=== PATIENT | female | born 1950 | race Caucasian/White ===

== ENCOUNTER 2024-03-22 17:16 | Emergency (ER) | payer OTHER, SELFPAY ==
[2024-03-22 17:21] VITALS: BMI 25.4
[2024-03-22 17:28] VITALS: BP 128/74
[2024-03-22 17:35] LABS: % Basophils 0.4 % (0-2); % Immature Granulocytes 0.3 % (0-0.5); % Lymphocytes 40.6 % (20.5-51.1); % Neutrophils 52.7 % (42.2-75.2); Absolute Basophils 0.1 10^3/uL (0-0.2); Absolute Lymphocytes 4.6 10^3/uL (1.2-3.4); Absolute Monocytes 0.7 10^3/uL (0.1-0.6); Absolute Neutrophils 5.9 10^3/uL (1.4-6.5); Hematocrit 37.8 % (37.0-47.0); Mean Corp Hgb Conc. 34.4 g/dL (33.0-37.0); Mean Corpuscular Hgb 29.8 pg (27.0-31.0); Mean Corpuscular Volume 86.7 fL (81.0-99.0); Mean Platelet Volume 9.9 fL (7.4-10.4); Nucleated Red Blood Cells % 0 %; Platelet Count 278 10^3/uL (130-400); Red Blood Cell Count 4.36 10^6/uL (4.20-5.40); Red Cell Dist. Width 13.2 % (11.5-14.5); White Blood Cell Count 11.2 10^3/uL (4.8-10.8)
[2024-03-22 18:00] VITALS: BP 109/67
[2024-03-22 18:17] LABS: ALT (SGPT) 15 U/L (0-35); AST (SGOT) 25 U/L (14-36); Albumin 4.4 g/dl (3.5-5.0); Alkaline Phosphatase 47 U/L (38-126); Blood Urea Nitrogen 11 mg/dl (7-17); Calcium 10.2 mg/dl (8.4-10.2); Carbon Dioxide 25 mmol/L (22-30); Chloride 100 mmol/L (98-107); Estimated Creatinine Clearance 38 ml/min; Glucose 170 mg/dl (70-99); Potassium 3.8 mmol/L (3.5-5.1); Sodium 138 mmol/L (135-145); Total Protein 6.8 g/dl (6.3-8.2); eGFR 53.39
[2024-03-22 19:00] VITALS: BP 118/73
[2024-03-22 19:21] LABS: Troponin I < 0.012 ng/ml
[2024-03-22] MEDS: REGLAN 10 MG IV (19:37)
[2024-03-22] MEDS: PEPCID 20 MG IV (19:39)
--- NOTE | 2024-03-22 22:20 | EDRN ---
Patient was able to ambulate around without difficulty, states she is ready to go home, informed Ed,[place]
[2024-03-22 22:23] VITALS: BP 108/83
--- NOTE | 2024-03-22 23:00 | ED.GENMED ---
History of Present Illness
General
Chief Complaint: Fainting/Passed Out
Source: patient
Exam Limitations: none
Time Seen by Provider: 03/22/24 18:06
Nursing documentation reviewed up to this point in time: agreed with
History of Present Illness
History of Present Illness:
73-year-old female with past medical history of partial colon removed presenting to the emergency department today after syncopal episode while she was out with her friend. An episode where she felt lightheaded but walk and passed out to the ground
denies any significant trauma. No pain at this point. Preceding chest pain palpitations shortness of breath. She claims that she has had some ongoing nausea over the past few days and decreased
Review of Systems
Review of Systems
Allergies reviewed?: Yes
All Other Systems: ROS reviewed and negative except as documented in HPI and ROS
Phy Exam
Physical Exam
Physical Exam:
GENERAL: Alert , in no apparent distress
EYE: pupils equal and reactive
NECK: Supple, no significant adenopathy.
ENT: o/p clr, mmm.
CARDIAC: Regular rate and rhythm .
LUNGS: Clear breath sounds bilaterally, no acute respiratory distress, no wheezes/rales/rhonchi
ABDOMEN: Soft, without focal tenderness, no r/g, no cvat
NEUROLOGICAL: Alert and oriented, no focal neuro deficits
SKIN: Warm and dry, skin intact.
MUSCULOSKELETAL: No edema, well perfused.
PSYCH: Normal and appropriate interaction.
Course
Orders/Labs/Results
Orders:
Orders
03/22/24 17:17
EKG [Electrocardiogram (*1)] Urgent
Reason for Study: Syncope
03/22/24 17:18
EKG- Treatment ONCE
03/22/24 17:27
CBC/With Diff [Complete Blood Count/With Diff] Urgent
CMP [Comprehensive Metabolic Panel] Urgent
03/22/24 18:38
Chest [CR Chest - 2 Views ] Urgent
Comment:
Reason For Exam: chest pain
03/22/24 18:39
Troponin I Urgent
03/22/24 19:34
Famotidine [Pepcid] 20 mg .ROUTE .STK-MED ONE
Metoclopramide [Reglan] 10 mg .ROUTE .STK-MED ONE
03/22/24 19:37
Famotidine [Pepcid] 20 mg IV NOW STA
Metoclopramide [Reglan] 10 mg IV NOW STA
Abnormal Lab Results
03/22/24
17:27
WBC 11.2 H 10^3/uL
(4.8-10.8)
Absolute Lymphs (auto) 4.6 H 10^3/uL
(1.2-3.4)
Absolute Monos (auto) 0.7 H 10^3/uL
(0.1-0.6)
Creatinine 1.1 H mg/dL
(0.6-1.0)
Glucose 170 H mg/dl
(70-99)
03/22/24 17:27
03/22/24 17:27
Vital Signs
Initial and Last Documented VS:
Initial Vital Signs
Temp
98.7 F
03/22/24 17:21
Last Documented Vital Signs
Temp Pulse Resp BP Pulse Ox
98.7 F 82 16 108/83 97
03/22/24 17:21 03/22/24 22:23 03/22/24 22:23 03/22/24 22:23 03/22/24 22:23
MDM/Problems Addressed
MDM/Problems Addressed:
73-year-old female presenting to the emergency department today after syncopal episode that occurred while she was out earlier today with her friend. Did not sustain any trauma. Upon arrival vital signs are normal patient no distress she claims to
have some nausea but denies any chest pain shortness of breath or palpitations. Slight white count of 11.2 otherwise labs unremarkable no evidence of coronary syndrome with negative troponin normal EKG normal chest x-ray. Patient asymptomatic for
multiple hours while in the ER advised for close outpatient follow-up and otherwise stable for outpatient management return precautions given.
*Critical Care Note
Total Time (30-74mins, 75-104mins- exclusive of procedures): Not Applicable
ED Attending Note
-
Portions of this chart may have been created with voice recognition software.� Occasional wrong word or��sound alike� substitutions may have occurred due to the inherent limitations of voice recognition software.
Discharge Plan
Departure
Patient Disposition: Home (Routine Discharge)
Date of Disposition: 03/22/24
Time of Disposition: 23:00
Patient with high blood pressure during this ER visit?: No
Condition: Good
Covid-19: Not Applicable
Discharge Problem:
Syncope
Instructions: Syncope (Fainting) (DC)
Referrals:
Jm Gomez [Other]
Activity Restrictions/Additional Instructions:
You came to the emergency department today with concerns of a syncopal episode. Here you had a reassuring assessment with reassuring labs and cardiac workup. Please follow closely with your primary care doctor and return for any worsening, new or
concerning symptoms.
Interventions
Interventions:
*Risk Screen - Suicide Last Done: 03/22/24 17:21
*General Assessment Last Done: 03/22/24 17:21
*Neglect/Abuse Screening Last Done: 03/22/24 17:21
ED- Fall Risk Assessment Last Done: 03/22/24 17:28
*ED COVID-19 Vaccine History Last Done: 03/22/24 17:21
*Nursing Disposition Last Done: 03/22/24 23:02
ED- Cardiac Assessment Last Done: 03/22/24 17:28
ED- Neurological Assessment Last Done: 03/22/24 17:28
Discharge Date and Time
Discharge Date/Time: 03/22/24 23:03
Print Language: MICRONESIAN
== END 2024-03-22 23:03 | disposition home or self-care (01) ==
LOC: EMR 17:16
PROVIDERS: Emergency Medicine; Physician Assistant; EMERGENCY PHYSICIAN Student in an Organized Health Care Education/Training Program
DX: R55 Syncope and collapse (principal); R11.0 Nausea; R06.02 Shortness of breath; R07.9 Chest pain, unspecified; R00.2 Palpitations; W19.XXXA Unspecified fall, initial encounter
CPT/HCPCS: 99284; 96374; 96375; 71046; 80053; 84484; 85025; 93005